=== PATIENT | male | born 1990 ===

== ENCOUNTER → 2023-10-11 | Outpatient (REF) | payer OTHER ==
[2023-10-11 11:40] LABS: SEMEN APPEARANCE OPAQUE (OPAQUE); SEMEN VISCOSITY LIQUID (LIQUID); SEMEN VOLUME 0.8 ML (2.0-5.0); SEMEN WBC >1 M/ml (<=1 M/ml); SEMEN pH 6.5 (7.0-8.0)
== END ==
LOC: M LAB REF 11:09
PROVIDERS: ATTEND Physician Assistant
DX: N46.9 Male infertility, unspecified (principal)

== ENCOUNTER → 2023-11-12 | Outpatient (REF) | payer OTHER | LOC: M LAB REF 13:44 | PROVIDERS: ATTEND Obstetrics & Gynecology | DX: N46.9 Male infertility, unspecified (principal) ==

== ENCOUNTER → 2024-02-11 | Outpatient (REF) | payer OTHER | LOC: M SFHCWAGY 16:20 | PROVIDERS: ATTEND Obstetrics & Gynecology | DX: Z30.8 Encounter for other contraceptive management (principal) ==